=== PATIENT | male | born 1960 | race Caucasian/White ===

== ENCOUNTER → 2024-06-29 15:20 | Outpatient (REF) | payer OTHER, SELFPAY | LOC: HWRAD 15:20 | PROVIDERS: ATTENDING PHYSICIAN Family Medicine | DX: M25.612 Stiffness of left shoulder, not elsewhere classified (principal) | CPT/HCPCS: 73030 ==

== ENCOUNTER → 2025-03-19 12:17 | Outpatient (REF) | payer OTHER, SELFPAY | LOC: RAD 12:17 | PROVIDERS: ATTENDING PHYSICIAN Family Medicine | DX: N50.89 Other specified disorders of the male genital organs (principal) | CPT/HCPCS: 72194; 76870; 93976; Q9967 ==

== ENCOUNTER → 2025-04-02 12:46 | Outpatient (REF) | payer OTHER, SELFPAY | LOC: HWRAD 12:46 | PROVIDERS: ATTENDING PHYSICIAN Family Medicine | DX: Z87.891 Personal history of nicotine dependence (principal) | CPT/HCPCS: 71271 ==

== ENCOUNTER → 2025-05-25 09:46 | Outpatient (REF) | payer OTHER, SELFPAY | LOC: HWRAD 09:46 | PROVIDERS: ATTENDING PHYSICIAN Family Medicine | DX: M25.512 Pain in left shoulder (principal) | CPT/HCPCS: 73030 ==

== ENCOUNTER 2025-06-25 06:16 | Day surgery (SDC) | payer OTHER, SELFPAY ==
[2025-06-08 13:52] VITALS: BMI 31.8
[2025-06-25] VITALS (11 sets, daily range): BP systolic 103–159; BP diastolic 64–90; BMI 31.8
[2025-06-25] MEDS: TYLENOL 1000 MG PO (08:39)
[2025-06-25] MEDS: HEPARIN 5000 UNITS SC (08:40)
[2025-06-25] MEDS: NORMOSOL-R/PLASMALYTE-A 1000 IV (08:55)
[2025-06-25 08:57] LABS: Glucose - Point of Care 173 mg/dl (70-99)
[2025-06-25 11:18] LABS: Glucose - Point of Care 203 mg/dl (70-99)
[2025-06-25] MEDS: DILAUDID 0.25 MG IV (11:41)
[2025-06-25] MEDS: ROXICODONE 10 MG PO (13:04)
--- NOTE | 2025-06-29 12:33 | W.IMMPOSTOP ---
Surgical Immed Post Op Note
-
Delayed entry from 06/25/25
Primary Surgeon: Toña
Assisting: Prudence STEVEN
Pre-op Diagnosis: Right inguinal hernia, incarcerated umbilical hernia
Post-op Diagnosis: Same
Procedure Performed: Robot assisted laparoscopic repair of right inguinal (rTAPP) and incarcerated umbilical hernias (primary, MIS)
Anesthesia Type: GETA
Specimen / Cultures: None
Estimated Blood Loss: 5cc
Complications: None immediate
Operative Findings: right indirect defect, moderate cord lipoma, MID XL 3D Max, 4mm umbilical defect with fat, repaired primarily with 2-0 PDS stratafix
--- NOTE | 2025-06-29 12:38 | OR.RPT ---
Operative Report
Operative Report
Delayed entry from 06/25/25
Primary Surgeon: Toña
Assisting: Prudence STEVEN
Pre-op Diagnosis: Right inguinal hernia, incarcerated umbilical hernia
Post-op Diagnosis: Same
Procedure Performed: Robot assisted laparoscopic repair of right inguinal (rTAPP) and incarcerated umbilical hernias (primary, MIS)
Anesthesia Type: GETA
Specimen / Cultures: None
Estimated Blood Loss: 5cc
Complications: None immediate
Operative Findings: Right indirect defect, moderate cord lipoma, MID XL 3D Max, 4mm umbilical defect with fat, repaired primarily with 2-0 PDS stratafix
Date of Surgery: 06/25/25
Indications: This 65M developed a symptomatic right inguinal hernia. On imaging a small umbilical hernia was identified. He asked that we repair both hernias today. Robot assisted laparoscopic repair of right inguinal hernia and incarcerated
umbilical hernia was elected.
Description of procedure:� The patient was taken to the operating room and positioned into supine position. The patient�s abdomen was prepped and draped in standard sterile fashion. A time-out was completed verifying correct patient, procedure,
site, positioning, and implants and special equipment prior to beginning this procedure.
A stab incision was made in the left upper quadrant, a Veress needle was inserted and proper position was confirmed by aspiration and saline drop test. Following this, pneumoperitoneum was created with insufflation of carbon dioxide to 12 mmHg. Then
a 8mm robotic trocar was inserted above and to the left of the umbilicus. A laparoscope was inserted and the area of initial trocar entry and Veress needle placement were both inspected and no injuries were found. Two 8mm trocars were then placed
lateral to the rectus sheath under direct visualization.
Both inguinal regions were inspected and the median umbilical ligament, medial umbilical ligament, and lateral umbilical fold were identified. Attention was turned to the right groin. The peritoneum was incised transversely above the defect and a
flap was developed in the caudad direction. Robin�s ligament was identified ultimately dissected to its junction with the iliac vein and the space of Retzius was developed bluntly. The dissection was continued inferiorly to the iliopubic tract,
with care taken to avoid injury to the femoral branch of the genitofemoral nerve and the lateral femoral cutaneous nerve. The cord structures were parietalized.
The direct space was inspected and a hernia defect was not identified. The femoral space was inspected and no defect was identified. The indirect space was inspected a defect was identified and reduced. The canal was inspected and a moderate cord
lipoma was identified and reduced.
Extra large right MID 3D max mesh was passed through a trocar. The mesh was placed into the preperitoneal space and moved into position to lay flat and completely cover the direct, indirect, and femoral spaces with overlap at the midline. The mesh
was secured into place using 2-0 vicryl suture to Robin�s ligament medially and laterally. Care was taken to avoid the inferolateral triangles containing the iliac vessels and genital nerves. The peritoneal flap was closed over the mesh and secured
with 2-0 monocryl stratafix suture in similar positions of safety. A 14g angiocath was used to decompress the preperitoneal space revealing good seal and all mesh in good position without folding or curling.
Attention was turned to the umbilicus. The peritoneum was incised and a small flap created, exposing the hernia. Incarcerated fat was reduced and the defect measured 4mm. It was closed with 2-0 PDS tsrtafix and the flapo was closed over the repair
and secured with 2-0 monocryl stratafix suture.
After ensuring adequate hemostasis, the trocars were removed and the pneumoperitoneum allowed to escape. The trocar incisions were closed at the skin level using 4-0 monocryl and topical skin adhesive. Marcaine 0.5% with epinephrine was infiltrated
into the skin around the port incisions. All counts were correct and the patient tolerated the procedure well and was taken to the postanesthesia care unit in stable condition.
The assistance of Prudence STEVEN was required due to the complexity of the procedure. During the procedure she assisted with retraction, resection, and closure of the wound.
== END 2025-06-25 13:04 | disposition home or self-care (01) ==
LOC: SDS 06:16
PROVIDERS: ATTENDING PHYSICIAN Surgery; FAMILY PHYSICIAN Family Medicine
DX: K40.90 Unilateral inguinal hernia, without obstruction or gangrene, not specified as recurrent (principal); K42.0 Umbilical hernia with obstruction, without gangrene
CPT/HCPCS: 49650; 49592; 36415; 82962; 93005; C1781

== ENCOUNTER → 2025-06-29 12:54 | Outpatient (REF) | payer OTHER, SELFPAY | LOC: RAD 12:54 | PROVIDERS: ATTENDING PHYSICIAN Orthopaedic Surgery Hand Surgery | DX: M75.42 Impingement syndrome of left shoulder (principal) | CPT/HCPCS: 70030 ==